=== PATIENT | male | born 1980 | race Caucasian/White ===

== ENCOUNTER 2016-12-28 09:40 | Emergency (ER) | payer OTHER ==
[~2016-12-28] VITALS: Ht 172.7 cm; Wt 77.3 kg
[~2016-12-28 09:40] MED LIST: ABILIFY15 MG PO; ABILIFY5 MG PO; ALPRAZOLAM0.5 M1 PO; AMILORIDE HCL5 MG PO; ARIPIPRAZOLE10 MG PO; CLONAZEPAM0.5 M1 PO; CLONAZEPAM0.5 MG PO; CLOZAPINE100 MG PO; CLOZARIL100 MG PO; COGENTIN1 MG PO; DIVALPROEX SOD250 M1 PO; DIVALPROEX SOD500 M1 PO; FLUPHENAZINE HCL5 MG PO; GLYCOPYRROLATE1 MG PO; KLONOPIN0.5 M1 PO; KRISTALOSE20 GM PO; LIPITOR20 MG PO; LITHIUM PO; LITHIUM8 MEQ/5 ML PO; LOXITANE PO; MIDAMOR5 MG PO; MINOCIN100 MG PO; PREVACID30 MG PO; PROLIXIN10 MG PO; PROPRANOLOL HCL40 MG PO; STOOL SOFTENER100 M1 PO; TRILEPTAL300 MG PO; TRILEPTAL600 MG PO; VISTARIL25 MG PO; VITAMIN D31000 UNI2 PO; XANAX0.5 MG PO; ZYPREXA20 MG PO
[2016-12-28 13:25] LABS: ADD MIUA? NO; BILIRUBIN NEGATIVE; BLOOD NEGATIVE; COLOR STRAW ((YELLOW)); GLUCOSE (STRIP) NEGATIVE; KETONES NEGATIVE; LEUKOCYTES NEGATIVE; NITRITE NEGATIVE; PROTEIN (STRIP) NEGATIVE; SPECIFIC GRAVITY 1.005 (1.000-1.030); UROBILINOGEN 0.2 MG/DL (0.2-1.0)
[2016-12-28 13:27] LABS: BASOPHIL COUNT 0.1 K/uL (0-0.1); EOSINOPHIL (%) 3.2 % (0-5); EOSINOPHIL COUNT 0.4 K/uL (0-0.3); HEMATOCRIT 43.6 % (38.0-50.0); IMMATURE GRANULOCYTE (%) 0.9 % (0.0-0.7); IMMATURE GRANULOCYTE COUNT 0.1 K/uL; LYMPHOCYTE COUNT 3.3 K/uL (1.0-2.8); MCH 26.4 PG (29.0-34.0); MCV 85.2 FL (86-99); MEAN PLAT.VOLUME 11.6 uM^3 (9.0-12.4); MONOCYTE (%) 9.7 % (3-12); MONOCYTE COUNT 1.3 K/uL (0-0.8); NEUTROPHIL (%) 60.5 % (45-76); PLATELET COUNT 242 K/uL (156-360); RBC DIS.WIDTH-CV 13.3 % (11.8-14.6); RBC DIS.WIDTH-SD 41.2 % (39-53); RED BLOOD COUNT 5.12 M/uL (4.00-5.50); WHITE BLOOD COUNT 13.2 K/uL (4.1-10.2)
[2016-12-28 13:37] LABS: CHLORIDE 112 mEq/L (99-109); POTASSIUM 4.5 mEq/L (3.7-5.4); SODIUM 147 mEq/L (136-147)
[2016-12-28 13:39] LABS: GLUCOSE 64 mg/dL (70-99)
[2016-12-28 13:40] LABS: ANION GAP 9 MEQ/L (2-14)
[2016-12-28 13:42] LABS: SERUM ETHYL ALCOHOL < 10 mg/dL
[2016-12-28 13:43] LABS: AMPHETAMINE NEGATIVE (500 ng/mL); BARBITURATES NEGATIVE (200 ng/mL); BENZODIAZEPINES PRESUMPTIVE POSITIVE (150 ng/mL); COCAINE NEGATIVE (150 ng/mL); INTERNAL CONTROLS VALID? YES; METHADONE NEGATIVE (200 ng/mL); METHAMPHETAMINE NEGATIVE (500 ng/mL); OPIATES (MORPHINE) NEGATIVE (100 ng/mL); OXYCODONE NEGATIVE (100 ng/mL); PHENCYCLIDINE NEGATIVE (25 ng/mL); PROPOXYPHENE NEGATIVE (300 ng/mL); THC CANNABINOIDS NEGATIVE (50 ng/mL); TRICYCLIC ANTIDEPRESSANTS NEGATIVE (300 ng/mL)
[2016-12-28 13:43] LABS: GFR ESTIMATE (CALCULATED) > 59 mL/min/
[2016-12-28 13:44] LABS: UREA NITROGEN (BUN) 17 mg/dL (9-23)
[2016-12-28 13:44] LABS: ADD MEDTOX COMMENT Y
[2016-12-28 14:29] LABS: BENZODIAZEPINES, URINE SCREEN POSITIVE (200 ng/mL)
[2016-12-28] MEDS ORDERED: LANSOPRAZOLE30 MG PO (19:26)
[2016-12-28] MEDS ORDERED: OLANZAPINE10 MG PO (20:03)
[2016-12-28] MEDS ORDERED: ATORVASTATIN CA20 MG PO (20:06)
[2016-12-29 06:48] VITALS: BP 113/72
== END 2016-12-29 06:50 ==
LOC: EME 09:40
PROVIDERS: Emergency Medicine
DX: F31.2 Bipolar disorder, current episode manic severe with psychotic features (principal); R45.851 Suicidal ideations; R41.83 Borderline intellectual functioning; Z91.5 Personal history of self-harm; K21.9 Gastro-esophageal reflux disease without esophagitis; E11.9 Type 2 diabetes mellitus without complications
CPT/HCPCS: 80048; 81003; 84999; 85025; 90837; 99281; 99285; G0480

== ENCOUNTER 2017-04-20 02:02 | Emergency (ER) | payer OTHER ==
[~2017-04-20] VITALS: Ht 172.7 cm; Wt 74.5 kg
[~2017-04-20 02:02] MED LIST changes: +ATORVASTATIN CA20 MG PO; +LANSOPRAZOLE30 MG PO; +OLANZAPINE10 MG PO
[2017-04-20 03:30] VITALS: BP 134/64
== END 2017-04-20 04:08 | disposition home or self-care (01) ==
LOC: EME 02:02
DX: S00.03XA Contusion of scalp, initial encounter (principal); M54.2 Cervicalgia; W10.9XXA Fall (on) (from) unspecified stairs and steps, initial encounter
CPT/HCPCS: 70450; 72125; 99281; 99284; J7030

== ENCOUNTER 2017-05-23 13:28 | Emergency (ER) | payer OTHER ==
[~2017-05-23] VITALS: Ht 167.6 cm; Wt 72.1 kg
[2017-05-23 15:16] LABS: MCH 26.1 PG (29.0-34.0); MCHC 30.7 G/DL (30.0-36.0); MCV 85.1 FL (86-99); MEAN PLAT.VOLUME 11.2 uM^3 (9.0-12.4); PLATELET COUNT 223 K/uL (156-360); RBC DIS.WIDTH-CV 13.8 % (11.8-14.6); RBC DIS.WIDTH-SD 42.7 % (39-53); RED BLOOD COUNT 5.05 M/uL (4.00-5.50); WHITE BLOOD COUNT 13.5 K/uL (4.1-10.2)
[2017-05-23 15:24] LABS: CHLORIDE 110 mEq/L (99-109); POTASSIUM 3.7 mEq/L (3.7-5.4); SODIUM 145 mEq/L (136-147)
[2017-05-23 15:25] LABS: GLUCOSE 108 mg/dL (70-99)
[2017-05-23 15:27] LABS: ANION GAP 8 MEQ/L (2-14)
[2017-05-23 15:29] LABS: GFR ESTIMATE (CALCULATED) > 59 mL/min/; SERUM ETHYL ALCOHOL < 10 mg/dL
[2017-05-23 15:30] LABS: UREA NITROGEN (BUN) 13 mg/dL (9-23)
[2017-05-23 17:28] LABS: ADD MEDTOX COMMENT Y; AMPHETAMINE NEGATIVE (500 ng/mL); BARBITURATES NEGATIVE (200 ng/mL); BENZODIAZEPINES PRESUMPTIVE POSITIVE (150 ng/mL); COCAINE NEGATIVE (150 ng/mL); INTERNAL CONTROLS VALID? YES; METHADONE NEGATIVE (200 ng/mL); METHAMPHETAMINE NEGATIVE (500 ng/mL); OPIATES (MORPHINE) NEGATIVE (100 ng/mL); OXYCODONE NEGATIVE (100 ng/mL); PHENCYCLIDINE NEGATIVE (25 ng/mL); PROPOXYPHENE NEGATIVE (300 ng/mL); THC CANNABINOIDS NEGATIVE (50 ng/mL); TRICYCLIC ANTIDEPRESSANTS NEGATIVE (300 ng/mL)
[2017-05-23 18:04] LABS: BENZODIAZEPINES, URINE SCREEN POSITIVE (200 ng/mL)
[2017-05-23 20:26] VITALS: BP 109/71
== END 2017-05-23 20:28 ==
LOC: EME 13:28
DX: F31.13 Bipolar disorder, current episode manic without psychotic features, severe (principal); R41.83 Borderline intellectual functioning; K21.9 Gastro-esophageal reflux disease without esophagitis; E23.2 Diabetes insipidus
CPT/HCPCS: 80048 91; 84999; 85027; 90837; 99281; 99284; G0480

== ENCOUNTER 2017-05-28 23:47 | Observation (INO) | payer OTHER ==
[~2017-05-28] VITALS: Ht 172.7 cm; Wt 69.6 kg
[~2017-05-28 23:47] MED LIST changes: -ALPRAZOLAM0.5 M1 PO; +ALPRAZOLAM0.5 MG PO; +INDERAL10 MG PO; -OLANZAPINE10 MG PO; -PROPRANOLOL HCL40 MG PO; +ZYPREXA ZYDIS 110 MG PO
[2017-05-29 00:45] LABS: BASOPHIL COUNT 0.1 K/uL (0-0.1); EOSINOPHIL (%) 3.3 % (0-5); EOSINOPHIL COUNT 0.4 K/uL (0-0.3); HEMATOCRIT 40.3 % (38.0-50.0); IMMATURE GRANULOCYTE (%) 0.6 % (0.0-0.7); IMMATURE GRANULOCYTE COUNT 0.1 K/uL; INSTRUMENT ABS NEUTROPHIL CT 8.2 K/uL; LYMPHOCYTE COUNT 2.8 K/uL (1.0-2.8); MCH 26.1 PG (29.0-34.0); MCHC 31.3 G/DL (30.0-36.0); MCV 83.4 FL (86-99); MEAN PLAT.VOLUME 11.4 uM^3 (9.0-12.4); MONOCYTE (%) 9.2 % (3-12); MONOCYTE COUNT 1.2 K/uL (0-0.8); NEUTROPHIL (%) 64.2 % (45-76); NEUTROPHIL COUNT 8.2 K/uL (1.8-6.4); PLATELET COUNT 247 K/uL (156-360); RBC DIS.WIDTH-CV 13.4 % (11.8-14.6); RBC DIS.WIDTH-SD 41.2 % (39-53); RED BLOOD COUNT 4.83 M/uL (4.00-5.50); WHITE BLOOD COUNT 12.8 K/uL (4.1-10.2)
[2017-05-29 00:55] LABS: CHLORIDE 112 mEq/L (99-109); POTASSIUM 4.1 mEq/L (3.7-5.4); SODIUM 146 mEq/L (136-147)
[2017-05-29 00:57] LABS: GLUCOSE 97 mg/dL (70-99)
[2017-05-29 00:58] LABS: ANION GAP 10 MEQ/L (2-14)
[2017-05-29 01:01] LABS: GFR ESTIMATE (CALCULATED) > 59 mL/min/
[2017-05-29 01:01] LABS: ADD MIUA? NO; BILIRUBIN NEGATIVE; BLOOD NEGATIVE; COLOR COLORLESS ((YELLOW)); GLUCOSE (STRIP) NEGATIVE; KETONES NEGATIVE; LEUKOCYTES NEGATIVE; NITRITE NEGATIVE; PROTEIN (STRIP) NEGATIVE; SPECIFIC GRAVITY 1.004 (1.000-1.030); UROBILINOGEN 0.2 MG/DL (0.2-1.0)
[2017-05-29 01:02] LABS: UREA NITROGEN (BUN) 19 mg/dL (9-23)
[2017-05-29 02:47] LABS: MAGNESIUM 2.3 mg/dL (1.3-2.7)
[2017-05-29 02:50] LABS: TOTAL BILIRUBIN 0.5 mg/dL (0.0-1.0)
[2017-05-29 02:52] LABS: ALKALINE PHOSPHATASE 113 IU/L (3-129)
[2017-05-29 02:54] LABS: DIRECT BILIRUBIN 0.3 mg/dL (0.0-0.3)
[2017-05-29] MEDS ORDERED: PEPCID20 MG PO (10:24)
[2017-05-29] MEDS ORDERED: ATIVAN1 MG PO (10:33)
[2017-05-29] MEDS ORDERED: CLOZARIL100 MG PO (10:35)
[2017-05-29 15:10] VITALS: BP 130/86
[2017-05-30 06:49] LABS: MCH 27.1 PG (29.0-34.0); MCHC 31.6 G/DL (30.0-36.0); MCV 85.7 FL (86-99); MEAN PLAT.VOLUME 11.3 uM^3 (9.0-12.4); PLATELET COUNT 251 K/uL (156-360); RBC DIS.WIDTH-SD 43.6 % (39-53); RED BLOOD COUNT 5.02 M/uL (4.00-5.50); WHITE BLOOD COUNT 11.8 K/uL (4.1-10.2)
[2017-05-30 07:12] LABS: ANION GAP 9 MEQ/L (2-14); CHLORIDE 113 MEQ/L (99-109); GFR ESTIMATE (CALCULATED) > 59 mL/min/; GLUCOSE 106 mg/dL (70-99); POTASSIUM 3.7 MEQ/L (3.7-5.4); SAMPLE HEMOLYSIS CHECK 0; SAMPLE ICTERIC CHECK 0; SAMPLE LIPEMIA CHECK 0; SODIUM 147 MEQ/L (136-147); UREA NITROGEN (BUN) 13 mg/dL (9-23)
[2017-05-30 07:35] VITALS: BP 123/75
[2017-05-30 11:25] VITALS: BP 127/80
[2017-05-30] MEDS ORDERED: OLANZAPINE10 MG PO (13:23)
== END 2017-05-30 16:27 ==
LOC: EME 23:47 → 5WEST 05-29 08:07 → EDOF 05-29 08:07 → ENRESERV 05-29 08:09 → 5WEST 05-29 15:11 → ENRESERV 05-30 10:00 → 5WEST 05-30 10:01
PROVIDERS: Emergency Medicine; Internal Medicine
DX: T43.591A Poisoning by other antipsychotics and neuroleptics, accidental (unintentional), initial encounter (principal); Z78.1 Physical restraint status; F79 Unspecified intellectual disabilities; F31.9 Bipolar disorder, unspecified; E03.9 Hypothyroidism, unspecified; K21.9 Gastro-esophageal reflux disease without esophagitis; D72.829 Elevated white blood cell count, unspecified
CPT/HCPCS: 70450; 70551; 80048; 80076; 80178; 81003; 82140; 83735; 84100; 85025; 85027; 99281; 99285; G0378; J1200; J1630; J1650; J2060; J3486; J7040